=== PATIENT | male | born 1965 | race Hispanic/Latino ===

== ENCOUNTER → 2017-12-17 | Outpatient (CLI) | payer MEDICAID | END | disposition home or self-care (01) | LOC: OIH 10:33 | PROVIDERS: ATTEND Family Medicine | DX: M25.561 Pain in right knee (principal); M25.571 Pain in right ankle and joints of right foot; M25.542 Pain in joints of left hand; M77.31 Calcaneal spur, right foot; M25.551 Pain in right hip; Z86.12 Personal history of poliomyelitis | CPT/HCPCS: 73130; 73502; 73562; 73610; 73630 ==

== ENCOUNTER 2019-02-15 21:28 | Emergency (ER) | payer MEDICAID ==
[2019-02-15] MEDS ORDERED: LIDOCAINE HCL 1% 20 ML VIAL ONE (22:12)
[2019-02-15] MEDS ORDERED: TETANUS/DIPHTHERIA TOXOID [ADULT] 0.5 ML VIAL IM ONE (22:39)
[2019-02-15] MEDS ORDERED: HYDROCODONE/ACETAMINOPHEN 5/325 MG TAB ONE (23:11)
[2019-02-15] MEDS ORDERED: CEPHALEXIN 500 MG CAPSULE ONE (23:14)
== END 2019-02-15 23:45 | disposition home or self-care (01) ==
LOC: EDH 21:28
DX: S81.831A Puncture wound without foreign body, right lower leg, initial encounter (principal); W54.0XXA Bitten by dog, initial encounter; Y93.89 Activity, other specified; Y92.89 Other specified places as the place of occurrence of the external cause; Y99.8 Other external cause status
CPT/HCPCS: 12031; 90471; 90714